=== PATIENT | female | born 1970 ===

== ENCOUNTER 2020-01-19 16:35 | Emergency (ER) | payer BC ==
[2020-01-19 17:01] VITALS: BP 144/92
--- NOTE | 2020-01-19 18:28 | UC ---
Skin Complaint HPI - HPI Summary HPI Summary: Per front services agent: "Starting 2 weeks ago and the pt thought it could be hives. Now the rash is on bilateral upper arms and it is dry, itchy, warm to touch, and it hurts. " -she has been under increased stress at work. it started just after they returned from trip to [facility] recently where wind chills hit record cold. she then went to [place] where the rash was much improved. no irritation w/ sunscreen -no f/c. no discharge. dry/itchy. no h/o eczema. 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 no SEs from med doing well -rasj is only on b/l arms, worse areas are on flexor upper arms. - History of Current Complaint Chief Complaint: UCRash Time Seen by Provider: 01/19/20 17:37 Stated Complaint: RASH/HIVES Pain Intensity: 4 - Allergy/Home Medications Allergies/Adverse Reactions: Allergies Allergy/AdvReac Type Severity Reaction Status Date / Time No Known Allergies Allergy Verified 01/19/20 17:02 Home Medications: Home Medications Hydrocortisone Valerate 45 gm TP TID 14 Days #45 oint...g. 01/19/20 [Rx] Tamoxifen Citrate 20 mg PO DAILY 01/19/20 [History Confirmed 01/19/20] PMH/Surg Hx/FS Hx/Imm Hx Previously Healthy: Yes - Surgical History Surgery Procedure, Year, and Place: DCIS-surgery - Family History Known Family History: Positive: Other - no Fhx eczema - Social History Alcohol Use: Occasionally Substance Use Type: None Smoking Status (MU): Never Smoked Tobacco Review of Systems All Other Systems Reviewed And Are Negative: Yes Constitutional: Positive: Negative. Negative: Fever, Chills, Fatigue Skin: Positive: Rash Eyes: Positive: Negative ENT: Negative: Sore Throat, Ear Ache, Nasal Discharge Respiratory: Positive: Negative. Negative: Shortness Of Breath, Cough Cardiovascular: Positive: Negative. Negative: Palpitations, Chest Pain Gastrointestinal: Positive: Negative. Negative: Abdominal Pain, Vomiting, Diarrhea, Nausea Genitourinary: Positive: Negative. Negative: Dysuria Motor: Positive: Negative Neurovascular: Positive: Negative Musculoskeletal: Positive: Negative Neurological/Mental Status: Positive: Negative Psychological: Positive: Negative Is Patient Immunocompromised?: No Physical Exam Triage Information Reviewed: Yes Appearance: Well-Appearing, No Pain Distress, Well-Nourished - very pleasant. reliable historian Vital Signs: Initial Vital Signs Temp 98.9 F 01/19/20 16:54 Pulse 90 01/19/20 16:54 Resp 14 01/19/20 16:54 BP 144/92 01/19/20 16:54 Pulse Ox 99 01/19/20 16:54 Vital Signs Reviewed: Yes Eye Exam: Normal ENT Exam: Normal ENT: Positive: Pharynx normal, TMs normal Neck exam: Normal Neck: Positive: Supple, Nontender, No Lymphadenopathy Respiratory Exam: Normal Respiratory: Positive: Lungs clear, Normal breath sounds, No respiratory distress, No accessory muscle use. Negative: Crackles, Rhonchi, Stridor, Wheezing Cardiovascular Exam: Normal Cardiovascular: Positive: RRR Abdominal Exam: Normal Musculoskeletal Exam: Normal Neurological Exam: Normal Neurological: Positive: Alert Psychological Exam: Normal Skin: Positive: Other - b/l flexor upper arms w/ symmetric areas of 1 large ovoid shaped non-blanching erytheamtous lesion on each arm. no dc. no streaks. cool to touch. bumpy rash. smaller area on rt lower arm that is newly emerging similar. none on back, abd , neck, face Course/Dx - Course Course Of Treatment: likely eczema exacervbated bu recentl cold exposure and stress -treat w/ mod dose hydrocortisone valerate cream. -disc steroids used to treat flares and maintain w/ aquaphor/high moisturizing topical. -denies swelling of lips, throat, SOb,wheezing -this is not urticarial -DDx can include tinea - Differential Diagnoses - Skin Complaint Differential Diagnoses: Cellulitis, Contact Dermatitis, Drug Rash, Tinea, Urticaria - Diagnoses Provider Diagnosis: Rash and nonspecific skin eruption Discharge ED - Sign-Out/Discharge Documenting (check all that apply): Patient Departure All imaging exams completed and their final reports reviewed: No Studies - Discharge Plan Condition: Stable Disposition: HOME Prescriptions: Hydrocortisone Valerate 45 gm TP TID 14 Days #45 oint...g. Patient Education Materials: Eczema (ED) Referrals: Silverio Varghese PA [Primary Care Provider] - Laura Keller [Medical Doctor] - Additional Instructions: I believe your rash is consistent with eczema, specifically nummular eczema ( that appears as coin like lesions on the extremities most often). I haev also given you some additional patient education material for your information. Make sure to keep your skin well moisturized. Avoid hot showers. Use of aquaphor daily to help prevent flare ups will be very helpful as well. -Since you are in [facility] primary care doctors, you can call the armature tester for follow up if your symptoms increase or persist. - Billing Disposition and Condition Condition: STABLE Disposition: Home
== END 2020-01-19 18:48 | disposition home or self-care (01) ==
LOC: UCCORT 16:35
DX: R21 Rash and other nonspecific skin eruption (principal)
CPT/HCPCS: 99212; G0463